=== PATIENT | female | born 1955 | race Caucasian/White ===

== ENCOUNTER 2021-10-02 12:10 | Inpatient (IN) | payer OTHER, MEDICAID ==
[~2021-10-02] VITALS: Ht 152.4 cm; Wt 58.1 kg
[2021-10-02 12:35] LABS: BASOPHILS % 0.7 % (0.0-2.0); HEMATOCRIT. 29.1 % (36.0-48.0); HEMOGLOBIN. 9.9 g/dL (12.0-16.0); MEAN CORPUSCULAR HEMOGLOBIN 30.5 pg (28.0-32.0); MEAN CORPUSCULAR VOLUME 90.2 fL (81.0-99.0); MEAN PLATELET VOLUME 8.4 fl (7.4-10.4); NEUTROPHILS % 76.3 % (40.0-76.0); PLATELET 207 x1000/uL (130-400); RED BLOOD CELL COUNT 3.23 mill/uL (4.2-5.4); RED CELL DISTRIBUTION WIDTH 18.1 % (11.6-14.6)
[2021-10-02 12:43] LABS: CHLORIDE 113 mEq/L (98-107)
[2021-10-02 12:46] LABS: ETHANOL BLOOD < 10 mg/dL
[2021-10-02] MEDS ORDERED: SODIUM CHLORIDE 0.9% 1,000 ML IV ONE (14:00)
[2021-10-02] MEDS ORDERED: SODIUM CHLORIDE 0.9% 1000ML BAG (SEPSIS BOLUS) IV ONE (14:45)
[2021-10-02 14:49] LABS: CLARITY URINE CLEAR (CLEAR); COLOR URINE YELLOW (YELLOW); KETONES URINE NEGATIVE (NEGATIVE); LEUKOCYTE ESTERASE URINE NEGATIVE (NEGATIVE); NITRITE URINE NEGATIVE (NEGATIVE); OCCULT BLOOD URINE NEGATIVE (NEGATIVE); PH URINE 5.5 (4.5-8.0); PROTEIN URINE NEGATIVE (NEGATIVE); SPECIFIC GRAVITY URINE 1.017 (1.005-1.030); UROBILINOGEN URINE 0.2 E.U./dL (0.2-1.0)
[2021-10-02 14:59] LABS: *AMPHETAMINES SCREEN URINE NEGATIVE (NEGATIVE); *BARBITURATES SCREEN URINE NEGATIVE (NEGATIVE); *BENZODIAZEPINES SCREEN URINE NEGATIVE (NEGATIVE); *COCAINE SCREEN URINE NEGATIVE (NEGATIVE); METHADONE URINE SCREEN NEGATIVE (NEGATIVE); OPIATES URINE SCREEN PRESUMTIVE POSITIVE (NEGATIVE)
[2021-10-02 15:00] LABS: CANNABINOID URINE SCREEN NEGATIVE (NEGATIVE); PHENCYCLIDINE URINE SCREEN NEGATIVE (NEGATIVE)
[2021-10-02] MEDS ORDERED: NALOXONE HCL 1 MG/ML 2ML VIAL IV ONE (15:00)
[2021-10-02] MEDS ORDERED: ACETAMINOPHEN 650MG SUPP PR PRN (18:00)
[2021-10-02] MEDS ORDERED: IPRATROPIUM/ALBUTEROL 0.5-3(2.5)MG/3ML NEB NEB PRN (18:00)
[2021-10-02] MEDS ORDERED: LORAZEPAM 0.5MG TABLET PO PRN (18:00)
[2021-10-02] MEDS ORDERED: ONDANSETRON HCL 4MG/2ML INJ IV PRN (18:00)
[2021-10-02] MEDS ORDERED: NA PHOS,M-B/NA PHOS,DI-BA ENEMA 118ML PR PRN (18:00)
[2021-10-02] MEDS ORDERED: GUAIFENESIN 200MG/10ML SUGAR FREE UDC PO PRN (18:00)
[2021-10-02] MEDS ORDERED: CLONIDINE 0.1MG TABLET PO PRN (18:00)
[2021-10-02] MEDS ORDERED: MAGNESIUM/ALUMINUM HYDROXIDE/SIMETHICONE 30ML UDC PO PRN (18:00)
[2021-10-02] MEDS ORDERED: DOCUSATE SODIUM 100MG CAPSULE PO PRN (18:00)
[2021-10-02] MEDS ORDERED: DIPHENHYDRAMINE 50MG/ML VIAL IV PRN (18:00)
[2021-10-02] MEDS: SODIUM CHLORIDE 0.45% 1,000 ML IV SCH (18:15)
[2021-10-02 18:29] LABS: PROTHROMBIN TIME 10.5 sec (9.6-11.0)
[2021-10-02] MEDS ORDERED: FAMOTIDINE 20MG TABLET PO SCH (21:00)
[2021-10-02 22:30] VITALS: BP 104/50
[2021-10-03] VITALS: BP 98/45
[2021-10-03] MEDS: ACETAMINOPHEN 325MG TABLET PO PRN ×2 (00:37→09:04)
[2021-10-03 02:08] LABS: CREATINE KINASE 165 IU/L (26-192)
[2021-10-03 04:00] VITALS: BP 110/52
[2021-10-03] MEDS: SODIUM CHLORIDE 0.45% 1,000 ML IV SCH (06:05)
[2021-10-03 07:07] LABS: CHLORIDE 124 mEq/L (98-107)
[2021-10-03 07:08] LABS: BASOPHILS % 0.5 % (0.0-2.0); EOSINOPHILS % 3.1 % (0.0-5.0); HEMATOCRIT. 27.7 % (36.0-48.0); HEMOGLOBIN. 9.5 g/dL (12.0-16.0); LYMPHOCYTES % 24.3 % (20.0-50.0); MEAN CORPUSCULAR HEMOGLOBIN 30.9 pg (28.0-32.0); MEAN PLATELET VOLUME 8.7 fl (7.4-10.4); MONOCYTES % 7.1 % (2.0-8.0); PLATELET 179 x1000/uL (130-400); RED BLOOD CELL COUNT 3.08 mill/uL (4.2-5.4); RED CELL DISTRIBUTION WIDTH 18.7 % (11.6-14.6)
[2021-10-03 07:17] LABS: CREATINE KINASE 99 IU/L (26-192)
[2021-10-03 07:21] LABS: CREATINE KINASE MB FRACTION 2.6 ng/mL (0.5-3.6)
[2021-10-03 08:00] VITALS: BP 126/57
[2021-10-03] MEDS ORDERED: DEXTROSE 5% WATER 1,000 ML IV SCH (11:30)
[2021-10-03 12:00] VITALS: BP 125/51
[2021-10-03 16:12] LABS: CHLORIDE 118 mEq/L (98-107)
[2021-10-03 17:58] VITALS: BP 125/51
== END 2021-10-03 18:30 | disposition home or self-care (01) | DRG 917 ==
LOC: ER 12:10 → 8WST 16:19 → EDBEDREQTM 16:25 → EDBEDREQ 16:25 → EDBEDREQSVC 18:08 → SUPCPDRO 18:16 → EDBEDREQSVC 18:34 → EDBEDREQTM 18:35 → ENRESERV 20:39 → 8WST 22:10
PROVIDERS: ADMIT Internal Medicine; ATTEND Internal Medicine
DX: T40.2X1A Poisoning by other opioids, accidental (unintentional), initial encounter (principal); G92.8 Other toxic encephalopathy; N17.9 Acute kidney failure, unspecified; D64.9 Anemia, unspecified; E86.0 Dehydration; E87.6 Hypokalemia; G89.29 Other chronic pain; I95.9 Hypotension, unspecified; Z53.20 Procedure and treatment not carried out because of patient's decision for unspecified reasons; Z88.0 Allergy status to penicillin; Y92.89 Other specified places as the place of occurrence of the external cause; Z71.51 Drug abuse counseling and surveillance of drug abuser
CPT/HCPCS: 36415; 71045; 80048; 80053; 80305; 80320; 81003; 82550; 82553; 83605; 84443; 84484; 85025; 93005; 97162; 99291; J2310; J7030; J7070; G0480

== ENCOUNTER 2022-03-02 07:39 | Inpatient (IN) | payer OTHER, MEDICAID ==
[~2022-03-02] VITALS: Ht 160 cm; Wt 51.0 kg
[2022-03-02 08:43] LABS: BASOPHILS % 0.4 % (0.0-2.0); EOSINOPHILS % 0.1 % (0.0-5.0); HEMATOCRIT. 32.8 % (36.0-48.0); HEMOGLOBIN. 10.7 g/dL (12.0-16.0); LYMPHOCYTES % 13.9 % (20.0-50.0); MEAN CORPUSCULAR HEMOGLOBIN 29.6 pg (28.0-32.0); MEAN CORPUSCULAR VOLUME 91.3 fL (81.0-99.0); MEAN PLATELET VOLUME 9.8 fl (7.4-10.4); MONOCYTES % 7.4 % (2.0-8.0); NEUTROPHILS % 78.2 % (40.0-76.0); PLATELET 298 x1000/uL (130-400); RED CELL DISTRIBUTION WIDTH 16.4 % (11.6-14.6)
[2022-03-02 08:45] LABS: CLARITY URINE CLOUDY (CLEAR); COLOR URINE YELLOW (YELLOW); KETONES URINE NEGATIVE (NEGATIVE); LEUKOCYTE ESTERASE URINE 3+ (NEGATIVE); NITRITE URINE NEGATIVE (NEGATIVE); OCCULT BLOOD URINE NEGATIVE (NEGATIVE); PROTEIN URINE TRACE (NEGATIVE); SPECIFIC GRAVITY URINE 1.009 (1.005-1.030); UROBILINOGEN URINE 0.2 E.U./dL (0.2-1.0)
[2022-03-02 09:00] LABS: CHLORIDE 115 mEq/L (98-107); ETHANOL BLOOD < 10 mg/dL
[2022-03-02 09:01] LABS: *AMPHETAMINES SCREEN URINE NEGATIVE (NEGATIVE); *BARBITURATES SCREEN URINE NEGATIVE (NEGATIVE); *BENZODIAZEPINES SCREEN URINE PRESUMTIVE POSITIVE (NEGATIVE); *COCAINE SCREEN URINE NEGATIVE (NEGATIVE); CANNABINOID URINE SCREEN NEGATIVE (NEGATIVE); METHADONE URINE SCREEN NEGATIVE (NEGATIVE); OPIATES URINE SCREEN PRESUMTIVE POSITIVE (NEGATIVE); PHENCYCLIDINE URINE SCREEN NEGATIVE (NEGATIVE)
[2022-03-02] MEDS ORDERED: LEVOFLOXACIN 750MG PREMIX 150 ML IV ONE (09:15)
[2022-03-02] MEDS ORDERED: ONDANSETRON HCL 4MG/2ML INJ IV PRN (12:30)
[2022-03-02 13:58] LABS: BG BASE EXCESS -4.5 mmol/L (-2.0-2.0); BG CARBOXYHEMOGLOBIN 0.3 % (0.5-1.5); BG DEOXYHEMOGLOBIN 3.1 % (0.0-5.0); BG FRACTION INSPIRED OXYGEN 21; BG HCO3 ACT 19.6 mmol/L (22.0-26.0); BG METHEMOGLOBIN 0.3 % (0.0-1.5); BG OXYGEN SATURATION 96.9 % (92.0-98.5); BG OXYHEMOGLOBIN 96.3 % (94.0-97.0); BG PCO2 32.6 mmHg (35.0-45.0); BG PH 7.397 (7.350-7.450); BG PO2 94.6 mmHg (75.0-100.0); BG SAMPLE SITE RIGHT RADIAL; BG TOTAL HEMOGLOBIN 10.2 g/dL (12.0-18.0); BG VENT MODE ROOM AIR
[2022-03-02 15:39] VITALS: BP 156/93
[2022-03-02 15:47] VITALS: BP 156/93
[2022-03-02] MEDS: ENOXAPARIN 40MG/0.4ML SYR SUBCUT SCH (17:20)
[2022-03-02 18:11] VITALS: BP 131/95
[2022-03-02 18:22] LABS: ETHANOL BLOOD < 10 mg/dL
[2022-03-02 18:26] LABS: CREATINE KINASE MB FRACTION 2.8 ng/mL (0.5-3.6)
[2022-03-02 20:00] VITALS: BP 137/87
[2022-03-02] MEDS: LORAZEPAM 0.5MG TABLET PO PRN (21:48)
[2022-03-02] MEDS: ACETAMINOPHEN 650MG/20.3ML UDC PO PRN (23:24)
[2022-03-03] VITALS (14 sets, daily range): BP systolic 109–161; BP diastolic 50–108
[2022-03-03 00:44] LABS: CREATINE KINASE MB FRACTION 3.5 ng/mL (0.5-3.6)
[2022-03-03] MEDS: IPRATROPIUM/ALBUTEROL 0.5-3(2.5)MG/3ML NEB HHN SCH ×2 (08:30→21:01)
[2022-03-03] MEDS: LORAZEPAM 0.5MG TABLET PO PRN ×2 (08:46→20:00)
[2022-03-03] MEDS: ENOXAPARIN 40MG/0.4ML SYR SUBCUT SCH (14:40)
[2022-03-04] VITALS (19 sets, daily range): BP systolic 123–158; BP diastolic 30–104
[2022-03-04] MEDS: IPRATROPIUM/ALBUTEROL 0.5-3(2.5)MG/3ML NEB HHN SCH ×5 (00:42→20:00)
[2022-03-04 06:19] LABS: BASOPHILS % 1.1 % (0.0-2.0); EOSINOPHILS % 2.7 % (0.0-5.0); HEMATOCRIT. 34.2 % (36.0-48.0); HEMOGLOBIN. 11.2 g/dL (12.0-16.0); LYMPHOCYTES % 34.2 % (20.0-50.0); MEAN CORPUSCULAR HEMOGLOBIN 29.6 pg (28.0-32.0); MEAN CORPUSCULAR VOLUME 90.2 fL (81.0-99.0); MEAN PLATELET VOLUME 9.8 fl (7.4-10.4); MONOCYTES % 9.5 % (2.0-8.0); NEUTROPHILS % 52.5 % (40.0-76.0); PLATELET 333 x1000/uL (130-400); RED BLOOD CELL COUNT 3.79 mill/uL (4.2-5.4); RED CELL DISTRIBUTION WIDTH 16.5 % (11.6-14.6)
[2022-03-04 06:29] LABS: CHLORIDE 111 mEq/L (98-107)
[2022-03-04] MEDS: ENOXAPARIN 30MG/0.3ML SYR SUBCUT SCH (09:05)
[2022-03-04] MEDS ORDERED: POTASSIUM CHLORIDE 20MEQ TABLET SR PO SCH (14:15)
[2022-03-04] MEDS: SODIUM CHLORIDE 0.9% 1,000 ML IV SCH ×2 (14:27→23:00)
[2022-03-04] MEDS: LORAZEPAM 0.5MG TABLET PO PRN (16:05)
[2022-03-04] MEDS ORDERED: HALOPERIDOL LACTATE 5MG/ML VIAL IM PRN (16:30)
[2022-03-04] MEDS: ACETAMINOPHEN 650MG/20.3ML UDC PO PRN (20:10)
[2022-03-05] VITALS (10 sets, daily range): BP systolic 115–166; BP diastolic 70–104
[2022-03-05] MEDS: IPRATROPIUM/ALBUTEROL 0.5-3(2.5)MG/3ML NEB HHN SCH ×5 (04:44→16:00)
[2022-03-05 06:25] LABS: BASOPHILS % 1.4 % (0.0-2.0); EOSINOPHILS % 2.5 % (0.0-5.0); HEMOGLOBIN. 10.4 g/dL (12.0-16.0); LYMPHOCYTES % 32.5 % (20.0-50.0); MEAN CORPUSCULAR HEMOGLOBIN 29.4 pg (28.0-32.0); MEAN CORPUSCULAR VOLUME 90.3 fL (81.0-99.0); MEAN PLATELET VOLUME 9.7 fl (7.4-10.4); MONOCYTES % 10.9 % (2.0-8.0); NEUTROPHILS % 52.7 % (40.0-76.0); PLATELET 279 x1000/uL (130-400); RED BLOOD CELL COUNT 3.55 mill/uL (4.2-5.4); RED CELL DISTRIBUTION WIDTH 16.8 % (11.6-14.6)
[2022-03-05] MEDS: SODIUM CHLORIDE 0.9% 1,000 ML IV SCH ×2 (06:41→15:00)
[2022-03-05 06:44] LABS: CHLORIDE 115 mEq/L (98-107)
[2022-03-05 07:18] LABS: VITAMIN B12 SERUM 1844 pg/mL (211-911)
[2022-03-05] MEDS: ENOXAPARIN 30MG/0.3ML SYR SUBCUT SCH (08:18)
[2022-03-05] MEDS ORDERED: MEMANTINE HCL 5MG TABLET PO SCH (16:18)
[2022-03-05] MEDS ORDERED: MEMA5TAB7 MT (19:11)
== END 2022-03-05 17:00 | disposition home or self-care (01) | DRG 917 ==
LOC: ER 07:50 → EDBEDREQTM 12:05 → EDBEDREQ 12:05 → EDBEDREQSVC 12:20 → ENRESERV 13:49 → 5EST 15:24
PROVIDERS: ADMIT Internal Medicine; ATTEND Internal Medicine
PROC: 4A00X4Z Measurement of Central Nervous Electrical Activity, External Approach (ICD-10-PCS; principal; 2022-03-05)
DX: T40.2X1A Poisoning by other opioids, accidental (unintentional), initial encounter (principal); G92.8 Other toxic encephalopathy; N39.0 Urinary tract infection, site not specified; D64.9 Anemia, unspecified; R00.0 Tachycardia, unspecified; E87.6 Hypokalemia; G89.4 Chronic pain syndrome; I10 Essential (primary) hypertension; F19.10 Other psychoactive substance abuse, uncomplicated; F11.10 Opioid abuse, uncomplicated; F03.90 Unspecified dementia, unspecified severity, without behavioral disturbance, psychotic disturbance, mood disturbance, and anxiety; Z78.1 Physical restraint status; Z88.0 Allergy status to penicillin; Z79.899 Other long term (current) drug therapy; Y92.89 Other specified places as the place of occurrence of the external cause
CPT/HCPCS: 36415; 36600; 70551; 80048; 80053; 80305; 80307; 80320; 80329; 81003; 82375; 82553; 82607; 82805; 82962; 83735; 84443; 84484; 85025; 87077; 87186; 93005; 94640; 95816; 97162; 99285; J1630; J1650; J1956; J2405; J7030; G0480

== ENCOUNTER 2023-08-28 14:58 | Inpatient (IN) | payer OTHER, MEDICAID ==
[~2023-08-28] VITALS: Ht 162.6 cm; Wt 46.7 kg
[~2023-08-28 14:58] MED LIST: MEMA5TAB7 MT
[2023-08-28 18:10] LABS: BASOPHILS % 1.2 % (0.0-2.0); EOSINOPHILS % 7.3 % (0.0-5.0); HEMATOCRIT. 28.5 % (36.0-48.0); HEMOGLOBIN. 9.3 g/dL (12.0-16.0); LYMPHOCYTES % 27.1 % (20.0-50.0); MEAN CORPUSCULAR HEMOGLOBIN 28.7 pg (28.0-32.0); MEAN CORPUSCULAR HGB CONC 32.4 g/dL (31.0-37.0); MEAN CORPUSCULAR VOLUME 88.6 fL (81.0-99.0); MEAN PLATELET VOLUME 9.3 fl (7.4-10.4); MONOCYTES % 11.4 % (2.0-8.0); PLATELET 249 x1000/uL (130-400); RED BLOOD CELL COUNT 3.22 mill/uL (4.2-5.4); RED CELL DISTRIBUTION WIDTH 17.1 % (11.6-14.6); WHITE BLOOD COUNT 5.1 x1000/uL (4.5-11.0)
[2023-08-28 18:13] LABS: AMMONIA < 10 uMol/L (<32)
[2023-08-28 18:14] LABS: ALANINE AMINOTRANSFERASE 9 IU/L (10-49); ALBUMIN 4.1 g/dL (3.2-4.8); ASPARTATE AMINOTRANSFERASE 24 IU/L (<34); BILIRUBIN TOTAL 0.2 mg/dL (0.1-1.0); CALCIUM 8.1 mg/dL (8.7-10.4); CARBON DIOXIDE 24 mEq/L (21-32); CHLORIDE 109 mEq/L (98-107); CREATININE 1.5 mg/dL (0.6-1.0); ETHANOL BLOOD < 10 mg/dL (<10); GLUCOSE 85 mg/dL (70-105); POTASSIUM 3.2 mEq/L (3.5-5.1); PROTEIN TOTAL 6.5 g/dL (6.0-8.3); SODIUM 142 mEq/L (136-145); UREA NITROGEN BLOOD 23 mg/dL (9-23)
[2023-08-28] MEDS: POTASSIUM CHLORIDE 20MEQ/PACKET PO NR (20:32)
[2023-08-28 22:45] VITALS: BP 129/79; PULSE 100; RESP 18; TEMP 98.2
[2023-08-29] VITALS: BP 129/79; PULSE 70; RESP 18; TEMP 98.2
[2023-08-29] MEDS: QUETIAPINE FUMARATE 25MG TABLET PO NR (01:42)
[2023-08-29] MEDS: PANTOPRAZOLE 40MG DR TABLET PO SCH (07:20)
[2023-08-29] MEDS ORDERED: PANTOPRAZOLE 40MG DR TABLET PO SCH (07:20)
[2023-08-29 08:00] VITALS: BP 154/48; PULSE 84; RESP 17; TEMP 98.1
[2023-08-29] MEDS: QUETIAPINE FUMARATE 25MG TABLET PO SCH (08:12)
[2023-08-29] MEDS: MEMANTINE HCL 5MG TABLET PO SCH (08:12)
[2023-08-29 08:23] LABS: BASOPHILS % 1.1 % (0.0-2.0); EOSINOPHILS % 5.3 % (0.0-5.0); HEMATOCRIT. 33.3 % (36.0-48.0); HEMOGLOBIN. 10.7 g/dL (12.0-16.0); LYMPHOCYTES % 26.4 % (20.0-50.0); MEAN CORPUSCULAR HEMOGLOBIN 28.9 pg (28.0-32.0); MEAN CORPUSCULAR VOLUME 90.4 fL (81.0-99.0); MEAN PLATELET VOLUME 9.8 fl (7.4-10.4); MONOCYTES % 11.2 % (2.0-8.0); PLATELET 266 x1000/uL (130-400); RED BLOOD CELL COUNT 3.68 mill/uL (4.2-5.4); RED CELL DISTRIBUTION WIDTH 17.9 % (11.6-14.6); WHITE BLOOD COUNT 5.6 x1000/uL (4.5-11.0)
[2023-08-29 08:58] LABS: CALCIUM 8.6 mg/dL (8.7-10.4); CREATININE 1.1 mg/dL (0.6-1.0); POTASSIUM 3.3 mEq/L (3.5-5.1)
[2023-08-29 12:00] VITALS: BP 144/57; PULSE 72; RESP 18; TEMP 98.1
[2023-08-29 16:00] VITALS: BP 144/58; PULSE 72; RESP 19; TEMP 98.6
[2023-08-29] MEDS ORDERED: ACETAMINOPHEN 325MG TABLET PO PRN (18:15)
[2023-08-29] MEDS ORDERED: DOCUSATE SODIUM 100MG CAPSULE PO PRN (18:15)
[2023-08-29] MEDS ORDERED: ONDANSETRON HCL 4MG/2ML INJ IV PRN (18:15)
[2023-08-29] MEDS ORDERED: IPRATROPIUM/ALBUTEROL 0.5-3(2.5)MG/3ML NEB HHN PRN (18:15)
[2023-08-29] MEDS: DEXT 5%/0.45% NACL 1000ML 1,000 ML IV SCH (18:15)
[2023-08-29 20:00] VITALS: BP 144/63; PULSE 76; RESP 17; TEMP 97.3
[2023-08-29] MEDS: HYDRALAZINE HCL 25MG TABLET PO SCH (21:53)
[2023-08-29] MEDS: ATORVASTATIN CALCIUM 40MG TABLET PO SCH (21:53)
[2023-08-29] MEDS: HALOPERIDOL LACTATE 5MG/ML VIAL IM NR (23:55)
[2023-08-30 08:00] VITALS: BP 146/94; PULSE 92; RESP 18; TEMP 98.3
[2023-08-30 12:00] VITALS: BP 151/81; PULSE 68; RESP 17; TEMP 97.8
[2023-08-30 16:00] VITALS: BP 158/89; PULSE 93; RESP 18; TEMP 98.4
[2023-08-30 18:12] LABS: BASOPHILS % 0.9 % (0.0-2.0); EOSINOPHILS % 0.8 % (0.0-5.0); HEMATOCRIT. 32.8 % (36.0-48.0); HEMOGLOBIN. 10.9 g/dL (12.0-16.0); LYMPHOCYTES % 26.2 % (20.0-50.0); MEAN CORPUSCULAR HEMOGLOBIN 29.6 pg (28.0-32.0); MEAN CORPUSCULAR HGB CONC 33.2 g/dL (31.0-37.0); MEAN CORPUSCULAR VOLUME 88.9 fL (81.0-99.0); MEAN PLATELET VOLUME 9.3 fl (7.4-10.4); MONOCYTES % 10.6 % (2.0-8.0); NEUTROPHILS % 61.5 % (40.0-76.0); PLATELET 300 x1000/uL (130-400); RED BLOOD CELL COUNT 3.69 mill/uL (4.2-5.4); WHITE BLOOD COUNT 4.3 x1000/uL (4.5-11.0)
[2023-08-30 18:24] LABS: CALCIUM 9.1 mg/dL (8.7-10.4); CARBON DIOXIDE 24 mEq/L (21-32); CHLORIDE 109 mEq/L (98-107); CREATININE 0.8 mg/dL (0.6-1.0); GLUCOSE 132 mg/dL (70-105); POTASSIUM 3.2 mEq/L (3.5-5.1); SODIUM 143 mEq/L (136-145); UREA NITROGEN BLOOD 10 mg/dL (9-23)
[2023-08-30 20:00] VITALS: BP 184/81; PULSE 76; RESP 19; TEMP 98.2
[2023-08-31] VITALS: BP 171/59; PULSE 80; RESP 19; TEMP 97.8
[2023-08-31 04:00] VITALS: BP 173/104; PULSE 89; RESP 18; TEMP 97.5
[2023-08-31] MEDS: CLONIDINE 0.1MG TABLET PO PRN (05:43)
[2023-08-31 08:00] VITALS: BP 137/87; PULSE 65; RESP 17; TEMP 98.1
[2023-08-31] MEDS: FAMOTIDINE 20MG TABLET PO SCH (09:02)
[2023-08-31] MEDS: AMLODIPINE 5MG TABLET PO SCH (09:02)
[2023-08-31 10:15] LABS: BASOPHILS % 0.8 % (0.0-2.0); EOSINOPHILS % 1.5 % (0.0-5.0); HEMOGLOBIN. 11.4 g/dL (12.0-16.0); LYMPHOCYTES % 25.7 % (20.0-50.0); MEAN CORPUSCULAR HEMOGLOBIN 29.4 pg (28.0-32.0); MEAN CORPUSCULAR HGB CONC 33.6 g/dL (31.0-37.0); MEAN CORPUSCULAR VOLUME 87.5 fL (81.0-99.0); MEAN PLATELET VOLUME 9.2 fl (7.4-10.4); MONOCYTES % 8.3 % (2.0-8.0); NEUTROPHILS % 63.7 % (40.0-76.0); PLATELET 289 x1000/uL (130-400); RED BLOOD CELL COUNT 3.88 mill/uL (4.2-5.4); WHITE BLOOD COUNT 4.5 x1000/uL (4.5-11.0)
[2023-08-31 10:27] LABS: CALCIUM 8.9 mg/dL (8.7-10.4); CARBON DIOXIDE 23 mEq/L (21-32); CHLORIDE 107 mEq/L (98-107); CREATININE 0.8 mg/dL (0.6-1.0); GLUCOSE 203 mg/dL (70-105); SODIUM 140 mEq/L (136-145); UREA NITROGEN BLOOD 7 mg/dL (9-23)
[2023-08-31 12:00] VITALS: BP 120/83; PULSE 73; RESP 17; TEMP 97.9
[2023-08-31] MEDS: HYDRALAZINE HCL 50MG TABLET PO SCH (13:36)
[2023-08-31 16:00] VITALS: BP 115/70; PULSE 76; RESP 17; TEMP 98
[2023-08-31 20:00] VITALS: BP 152/84; PULSE 80; RESP 17; TEMP 98.2
[2023-08-31] MEDS ORDERED: NON FORMULARY PATIENT HOME MED PO PRN (20:00)
[2023-08-31] MEDS: ACETAMINOPHEN 325MG TABLET PO PRN (20:26)
[2023-08-31] MEDS: MELATONIN 3MG TABLET PO PRN (21:50)
[2023-09-01] VITALS: BP 156/88; PULSE 83; RESP 18; TEMP 98.1
[2023-09-01 04:00] VITALS: BP 163/94; PULSE 65; RESP 18; TEMP 98.4
[2023-09-01 07:23] LABS: BASOPHILS % 1.2 % (0.0-2.0); HEMATOCRIT. 32.9 % (36.0-48.0); LYMPHOCYTES % 27.5 % (20.0-50.0); MEAN CORPUSCULAR HEMOGLOBIN 29.7 pg (28.0-32.0); MEAN CORPUSCULAR HGB CONC 33.4 g/dL (31.0-37.0); MEAN CORPUSCULAR VOLUME 88.9 fL (81.0-99.0); MEAN PLATELET VOLUME 9.7 fl (7.4-10.4); MONOCYTES % 9.8 % (2.0-8.0); NEUTROPHILS % 58.5 % (40.0-76.0); PLATELET 282 x1000/uL (130-400); RED CELL DISTRIBUTION WIDTH 17.7 % (11.6-14.6); WHITE BLOOD COUNT 5.7 x1000/uL (4.5-11.0)
[2023-09-01 07:54] LABS: CALCIUM 9.1 mg/dL (8.7-10.4); CARBON DIOXIDE 24 mEq/L (21-32); CHLORIDE 106 mEq/L (98-107); CREATININE 0.7 mg/dL (0.6-1.0); GLUCOSE 100 mg/dL (70-105); POTASSIUM 3.2 mEq/L (3.5-5.1); SODIUM 140 mEq/L (136-145); UREA NITROGEN BLOOD 9 mg/dL (9-23)
[2023-09-01 08:00] VITALS: BP 129/70; PULSE 90; RESP 18; TEMP 97.7
[2023-09-01] MEDS: AMLODIPINE 10MG TABLET PO SCH (08:39)
[2023-09-01 12:00] VITALS: BP 94/63; PULSE 91; RESP 17; TEMP 98.1
[2023-09-01] MEDS: POTASSIUM CHLORIDE 20MEQ/PACKET PO NR (15:55)
[2023-09-01 16:00] VITALS: BP 111/69; PULSE 89; RESP 18; TEMP 97.8
[2023-09-01 20:00] VITALS: BP 117/70; PULSE 73; RESP 18; TEMP 98.2
[2023-09-02] VITALS: BP 131/74; PULSE 91; RESP 18; TEMP 97.3
[2023-09-02 04:00] VITALS: BP 131/65; PULSE 90; RESP 18; TEMP 98.2
[2023-09-02 08:00] VITALS: BP 120/74; PULSE 96; RESP 17; TEMP 98.1
[2023-09-02 12:00] VITALS: BP 127/69; PULSE 98; RESP 17; TEMP 97.9
[2023-09-02 16:00] VITALS: BP 95/58; PULSE 100; RESP 17; TEMP 97.9
[2023-09-02 20:00] VITALS: BP 116/56; PULSE 102; RESP 20; TEMP 97.5
[2023-09-03] VITALS (8 sets, daily range): BP systolic 101–130; BP diastolic 48–83; PULSE 58–102; RESP 18–20; TEMP 96.6–98.7; O2SAT 100
[2023-09-03] MEDS ORDERED: POTASSIUM CHLORIDE 20MEQ TABLET SR PO ONE (10:15)
[2023-09-04 04:00] VITALS: BP 106/60; PULSE 106; RESP 20; TEMP 97.2
== END 2023-09-04 10:30 | disposition home or self-care (01) | DRG 71 ==
LOC: ER 14:58 → 6EST 18:25 → EDBEDREQ 18:28 → EDBEDREQTM 18:28 → 4WST 08-29 20:48
PROVIDERS: ADMIT Internal Medicine; ATTEND Internal Medicine
DX: G93.40 Encephalopathy, unspecified (principal); N17.9 Acute kidney failure, unspecified; E87.6 Hypokalemia; D64.9 Anemia, unspecified; E78.5 Hyperlipidemia, unspecified; F03.90 Unspecified dementia, unspecified severity, without behavioral disturbance, psychotic disturbance, mood disturbance, and anxiety; I10 Essential (primary) hypertension; E11.9 Type 2 diabetes mellitus without complications; Z88.0 Allergy status to penicillin; Z79.899 Other long term (current) drug therapy
CPT/HCPCS: 36415; 71045; 80048; 80053; 80061; 80320; 82140; 83036; 83605; 85025; 93005; 97116; 97161; 97166; 97168; 97530; 97535; 99285; J1630; G0480

== ENCOUNTER 2024-10-10 17:15 | Emergency (ER) | payer OTHER, MEDICAID ==
[~2024-10-10] VITALS: Ht 162.6 cm; Wt 48.0 kg
[2024-10-10 17:20] VITALS: TEMP 36.9; O2SAT 98
[2024-10-10] MEDS ORDERED: CYCL5TAB3 MT (18:28)
[2024-10-10 19:03] VITALS: BP 129/75; PULSE 82; RESP 22
[2024-10-10] MEDS: OXYCODONE HCL/ACETAMINOPHEN 5/325MG TABLET PO ONE (19:03)
== END 2024-10-10 19:08 | disposition home or self-care (01) ==
LOC: ER 17:15
DX: G89.29 Other chronic pain (principal); M54.50 Low back pain, unspecified; E11.9 Type 2 diabetes mellitus without complications; I10 Essential (primary) hypertension; F03.90 Unspecified dementia, unspecified severity, without behavioral disturbance, psychotic disturbance, mood disturbance, and anxiety; Z96.649 Presence of unspecified artificial hip joint; Z88.0 Allergy status to penicillin
CPT/HCPCS: 99283